=== PATIENT | female | born 1990 | race Caucasian/White ===

== ENCOUNTER → 2019-01-14 | Outpatient (CLI) | payer OTHER ==
--- NOTE | 2019-01-14 12:28 | RADIOLOGY IMAGING REPORT ---
FACILITY: [facility] - [place] PATIENT NAME: Susan Helm : 1990 MR: [id number] V: [id number] EXAM DATE: ORDERING PHYSICIAN: TYRONE JACKSON TECHNOLOGIST: Location: [facility] - [place] Patient: Susan Helm : 1990 Visit/Account:[id number] Date of Sevice: 01/14/2019 TRANSVAGINAL NON-OB HISTORY: Mirena IUD May 2018, bleeding, cramping, dyspareunia x2 weeks TECHNIQUE: Transvaginal ultrasound pelvis. COMPARISON: None. FINDINGS: Uterus: ; 7.8 cm length x 2.6 cm AP x 4.6 cm transverse. Myometrium: Unremarkable. Endometrium: There is an IUD which appears to been good position within the endometrial canal double thickness 4 mm. Cervix: There is a small amount of fluid in the endocervical canal. Ovaries: Right - 3.2 x 3.5 x 2.7 cm contains a 2.4 cm right ovarian cyst Left - 3.3 x 3.2 x 1.6 cm and contains a 2.3 cm cyst Blood flow is documented in each ovary by duplex Doppler ultrasound. Adnexa: Grossly unremarkable. Free pelvic fluid: Mild. IMPRESSION: There are bilateral ovarian cysts, largest on the right 2.4 cm and largest on the left 2.3 cm IUD appears to been good position within the endometrial canal. Small amount of fluid in the endocervical canal Report Dictated By: Isidra Flores MD at 01/14/2019 12:21 PM Report E-Signed By: Isidra Flores MD at 01/14/2019 12:25 PM WSN:[id number]
== END ==
LOC: US 10:14
PROVIDERS: ATTEND Nurse Practitioner Family
DX: N83.201 Unspecified ovarian cyst, right side (principal); N83.202 Unspecified ovarian cyst, left side
CPT/HCPCS: 76830

== ENCOUNTER 2019-01-17 15:44 | Emergency (ER) | payer OTHER ==
[2019-01-17] MEDS ORDERED: NS(*) 0.9% 1000 ML BAG 1,000 ML IV ONE (16:12)
[2019-01-17] MEDS ORDERED: ONDANSETRON 4 MG/2 ML VIAL IVP ONE (16:15)
[2019-01-17] MEDS ORDERED: MORPHINE 4 MG/ML SDV IVP ONE (16:15)
--- NOTE | 2019-01-17 16:21 | ER Report ---
History and Physical Time Seen By MD: 16:08 Hx. of Stated Complaint: patient sent over from [facility], they thought symptoms suspicious for appendicitis. Patient states at 1130 she started having cramping in right lower abdomen, pain went down leg, patient states feels warm to touch in abdomen. patient has been on period for long time, started to go away and then came back with the pain today. HPI/ROS CHIEF COMPLAINT: Abdominal pain HISTORY OF PRESENT ILLNESS: This is a 28-year-old female who presents to the emergency department for abdominal pain. Patient states that she's had ongoing abdominal pain, for the last couple of weeks, had a transvaginal ultrasound was noted to have bilateral ovarian cysts. She states however today 11:00 she had a sudden onset of right lower quadrant pain, followed up with [facility], so subsequently sent to the ER for further evaluation. Patient is very tearful. She states the pain is constant and will have waves of intensity that causes her right upper thigh to become painful. She denies fevers or chills. No chest pain or shortness of breath. No rashes. Denies dysuria. She does state that she is at an ongoing menstrual cycle without [facility] has been assisting her with, they also noted that her IUD was in place. REVIEW OF SYSTEMS: Constitutional: No fever, no chills. Eyes: No discharge. ENT: No sore throat. Cardiovascular: No chest pain, no palpitations. Respiratory: No cough, no shortness of breath. Gastrointestinal: As above. BLOOD BANK ASSISTANT: As above. Genitourinary: No hematuria. Musculoskeletal: No back pain. Skin: No rashes. Neurological: No headache. Allergies: Coded Allergies: No Known Drug Allergies (Unverified , 01/17/19) Past Medical/Surgical History Patient has a past medical surgical history of tonsillectomy, wears glasses and contacts, asthma, ovarian cysts. Reviewed Nurses Notes: Yes Constitutional Vital Sign - Last 24 Hours 01/17/19 15:48 Temp 97.8 Pulse 85 Resp 24 B/P (MAP) 135/75 Pulse Ox 96 O2 Delivery Room Air Physical Exam General Appearance: The patient is alert, has no immediate need for airway protection and no signs of toxicity. Eyes: Pupils equal and round no pallor or injection. ENT, Mouth: Mucous membranes are moist. Respiratory: There are no retractions, lungs are clear to auscultation. Cardiovascular: Regular rate and rhythm no murmurs, clicks or rubs. Gastrointestinal: Abdomen is soft, tenderness to the mid abdomen, right lower quadrant with rebound tenderness, mild discomfort to the left lower abdomen. no masses, bowel sounds normal. Neurological: Patient is alert and oriented 4. Moving all extremities. Following all commands. No focal neuro deficits. Skin: Warm and dry, no rashes. Musculoskeletal: Neck is supple non tender. Extremities are nontender, nonswollen and have full range of motion. DIFFERENTIAL DIAGNOSIS: After history and physical exam differential diagnosis was considered for abdominal pain in a female including but not limited to ovarian cyst, pelvic inflammatory disease, ovarian torsion, urinary tract infect ion, and appendicitis. Medical Decision Making Data Points Result Diagram: 01/17/19 1558 01/17/19 1558 Laboratory Hematology Test 01/17/19 00:00 01/17/19 15:58 Urine Color Yellow Urine Clarity Clear Urine pH 6.5 pH (4.8-9.5) Urine Specific [place] 1.05 Urine Protein Negative mg/dL (NEGATIVE) Urine Glucose (UA) Negative mg/dL (NEGATIVE) Urine Ketones Negative mg/dL (NEGATIVE) Urine Blood Negative (NEGATIVE) Urine Nitrite Negative (NEGATIVE) Urine Bilirubin Negative (NEGATIVE) Urine Urobilinogen 0.2 mg/dL (0.2-1.9) Urine Leukocyte Esterase Negative (NEGATIVE) Urine RBC None /HPF (0-2/HPF) Urine WBC None /HPF (0-5/HPF) Urine Squamous Epithelial Cells None /LPF (</=FEW) Urine Bacteria Negative /HPF (NONE-FEW) Urine Mucus None /HPF (NONE-FEW) Red Blood Count 5.09 M/uL (4.17-5.56) Mean Corpuscular Volume 89.2 fL (80.0-96.0) Mean Corpuscular Hemoglobin 30.6 pg (26.0-33.0) Mean Corpuscular Hemoglobin Concent 34.3 g/dL (32.0-36.0) Red Cell Distribution Width 13.4 % (11.5-14.5) Mean Platelet Volume 8.3 fL (7.2-11.1) Neutrophils (%) (Auto) 51.6 % (39.4-72.5) Lymphocytes (%) (Auto) 31.9 % (17.6-49.6) Monocytes (%) (Auto) 13.2 % (4.1-12.4) Eosinophils (%) (Auto) 2.7 % (0.4-6.7) Basophils (%) (Auto) 0.6 % (0.3-1.4) Nucleated RBC Relative Count (auto) 0.0 /100WBC Neutrophils # (Auto) 4.2 K/uL (2.0-7.4) Lymphocytes # (Auto) 2.6 K/uL (1.3-3.6) Monocytes # (Auto) 1.1 K/uL (0.3-1.0) Eosinophils # (Auto) 0.2 K/uL (0.0-0.5) Basophils # (Auto) 0.0 K/uL (0.0-0.1) Nucleated RBC Absolute Count (auto) 0.00 K/uL Sodium Level 140 mmol/L (137-145) Potassium Level 3.8 mmol/L (3.5-5.0) Chloride Level 105 mmol/L (98-107) Carbon Dioxide Level 25 mmol/L (22-31) Blood Urea Nitrogen 17 mg/dl (7-18) Creatinine 0.80 mg/dl (0.52-1.04) Glomerular Filtration Rate Calc > 60.0 Random Glucose 94 mg/dl (75-110) Calcium Level 9.3 mg/dl (8.4-10.2) Total Bilirubin 0.5 mg/dl (0.2-1.3) Aspartate Amino Transf (AST/SGOT) 23 U/L (0-35) Alanine Aminotransferase (ALT/SGPT) 24 U/L (0-56) Alkaline Phosphatase 50 U/L (0-126) Total Protein 7.8 g/dl (6.3-8.2) Albumin 4.5 g/dl (3.5-5.0) Human Chorionic Gonadotropin, Qual Negative (NEGATIVE) Chemistry Test 01/17/19 00:00 01/17/19 15:58 Urine Color Yellow Urine Clarity Clear Urine pH 6.5 pH (4.8-9.5) Urine Specific [place] 1.05 Urine Protein Negative mg/dL (NEGATIVE) Urine Glucose (UA) Negative mg/dL (NEGATIVE) Urine Ketones Negative mg/dL (NEGATIVE) Urine Blood Negative (NEGATIVE) Urine Nitrite Negative (NEGATIVE) Urine Bilirubin Negative (NEGATIVE) Urine Urobilinogen 0.2 mg/dL (0.2-1.9) Urine Leukocyte Esterase Negative (NEGATIVE) Urine RBC None /HPF (0-2/HPF) Urine WBC None /HPF (0-5/HPF) Urine Squamous Epithelial Cells None /LPF (</=FEW) Urine Bacteria Negative /HPF (NONE-FEW) Urine Mucus None /HPF (NONE-FEW) White Blood Count 8.2 k/uL (4.5-11.0) Red Blood Count 5.09 M/uL (4.17-5.56) Hemoglobin 15.6 g/dL (12.0-16.0) Hematocrit 45.4 % (34.0-47.0) Mean Corpuscular Volume 89.2 fL (80.0-96.0) Mean Corpuscular Hemoglobin 30.6 pg (26.0-33.0) Mean Corpuscular Hemoglobin Concent 34.3 g/dL (32.0-36.0) Red Cell Distribution Width 13.4 % (11.5-14.5) Platelet Count 370 K/uL (150-450) Mean Platelet Volume 8.3 fL (7.2-11.1) Neutrophils (%) (Auto) 51.6 % (39.4-72.5) Lymphocytes (%) (Auto) 31.9 % (17.6-49.6) Monocytes (%) (Auto) 13.2 % (4.1-12.4) Eosinophils (%) (Auto) 2.7 % (0.4-6.7) Basophils (%) (Auto) 0.6 % (0.3-1.4) Nucleated RBC Relative Count (auto) 0.0 /100WBC Neutrophils # (Auto) 4.2 K/uL (2.0-7.4) Lymphocytes # (Auto) 2.6 K/uL (1.3-3.6) Monocytes # (Auto) 1.1 K/uL (0.3-1.0) Eosinophils # (Auto) 0.2 K/uL (0.0-0.5) Basophils # (Auto) 0.0 K/uL (0.0-0.1) Nucleated RBC Absolute Count (auto) 0.00 K/uL Glomerular Filtration Rate Calc > 60.0 Calcium Level 9.3 mg/dl (8.4-10.2) Total Bilirubin 0.5 mg/dl (0.2-1.3) Aspartate Amino Transf (AST/SGOT) 23 U/L (0-35) Alanine Aminotransferase (ALT/SGPT) 24 U/L (0-56) Alkaline Phosphatase 50 U/L (0-126) Total Protein 7.8 g/dl (6.3-8.2) Albumin 4.5 g/dl (3.5-5.0) Human Chorionic Gonadotropin, Qual Negative (NEGATIVE) Urinalysis Test 01/17/19 00:00 Urine Color Yellow Urine Clarity Clear Urine pH 6.5 pH (4.8-9.5) Urine Specific [place] 1.05 Urine Protein Negative mg/dL (NEGATIVE) Urine Glucose (UA) Negative mg/dL (NEGATIVE) Urine Ketones Negative mg/dL (NEGATIVE) Urine Blood Negative (NEGATIVE) Urine Nitrite Negative (NEGATIVE) Urine Bilirubin Negative (NEGATIVE) Urine Urobilinogen 0.2 mg/dL (0.2-1.9) Urine Leukocyte Esterase Negative (NEGATIVE) Urine RBC None /HPF (0-2/HPF) Urine WBC None /HPF (0-5/HPF) Urine Squamous Epithelial Cells None /LPF (</=FEW) Urine Bacteria Negative /HPF (NONE-FEW) Urine Mucus None /HPF (NONE-FEW) EKG/Imaging Imaging PATIENT NAME: Susan Helm : 1990 MR: [id number] V: [id number] EXAM DATE: ORDERING PHYSICIAN: SHANA BRAND TECHNOLOGIST: Location: [facility] Patient: Susan Helm : 1990 Visit/Account:[id number] Date of Sevice: 01/17/2019 CT abdomen and pelvis with IV contrast Indication: Right lower abdominal pain. Comparison: None available. . Technique: Axial CT images were obtained through the abdomen and pelvis during injection of nonionic iodinated intravenous contrast. Reformatted coronal and sagittal images were also obtained. One of the following dose optimization techniques was utilized in the performance of this exam: Automated exposure control; adjustment of the mA and/or kV according to the patient's size; or use of an iterative reconstruction technique. Specific details can be referenced in the facility's radiology CT exam operational policy. Contrast: 75 ml of Isovue-370 IV contrast. Findings: Lower lung muñoz: Limited views lower lung field are unremarkable. Liver: No focal parenchymal abnormality of the liver. Mild periportal hyp odensity diffusely. No periportal enhancement. The vasculature appears patent. Biliary: Gallbladder appears unremarkable as well as the intra and extra hepatic biliary system. Pancreas: Normal appearance. Spleen: Normal appearance. Adrenal glands: Unremarkable. Kidneys / retroperitoneum: No evidence of nephrolithiasis or hydronephrosis. No focal normality. Bowel / peritoneum / mesenteries: The appendix is normal. The tip of the appendix does show a tiny calcification. No inflammation or other focal abnormality of the appendix. The colon shows no focal normality. The small bowel shows no focal normality or obstruction. The stomach is unremarkable. No free air, fluid collections or areas of inflammation. Lymph node assessment: No pathologic adenopathy identified. Pelvic structures: The right ovary does show a collapsing/ruptured ovarian cyst measuring 2 cm. There is small amount of free fluid seen in the right adnexa and pelvis. The remaining pelvic structures visualized within normal limits. IUD appears to be in good position. Vessels: No significant atherosclerotic calcifications seen throughout a nonaneurysmal abdominal aorta and branches. Musculoskeletal / Body wall: No acute or aggressive osseous abnormality. IMPRESSION: 1. The appendix is normal. 2. Right ovary shows a collapsing/ruptured 2 cm cyst with small amount of free fluid. 3. The liver does show mild prominent periportal hypodensity. This is likely due to the phase of contrast and mild periportal fat. There is no abnormal enhancement to suggest cholangitis. Report Dictated By: Humberto Hernandez at 01/17/2019 5:33 PM Report E-Signed By: Humberto Hernandez at 01/17/2019 5:42 PM WSN:[id number] ED Course/Re-evaluation Clinical Indication for ER IV: Hydration, IV Access ED Course The patient was admitted to room. A history and physical obtained. Differential diagnoses were considered. An IV was started. A CBC, CMP were obtained. A UA was collected. Laboratory studies and UA unremarkable. A 1 L normal saline bolus was given. 4 mg IV Zofran, 4 mg IV morphine were given. CT of the abdomen and pelvis negative for acute appendicitis, showing a right ovarian cyst collapsing. Reviewed this with the patient, did tell her this is likely the source of her discomfort. Patient expressed understanding. I did tell the patient that she should follow-up with BLOOD BANK ASSISTANT for future care and the continuous vaginal bleeding. Patient expressed understanding was agreeable with this plan care and discharged home. Decision to Disposition Date: Jan 17, 2019 Decision to Disposition Time: 18:07 Depart Departure Latest Vital Signs Vital Signs Date Time Temp Pulse Resp B/P (MAP) Pulse Ox O2 Delivery O2 Flow Rate FiO2 01/17/19 15:48 97.8 85 24 135/75 96 Room Air Impression: Primary Impression: Right ovarian cyst Condition: Improved Disposition: HOME OR SELF-CARE Referrals: ELI LOCKHART DO Patient Instructions: Ovarian Cyst (ED) Additional Instructions: Your appendix is normal, the pain is likely from the ovarian cyst on the right side. Here blood work is unremarkable. You can take 600-800 mg of ibuprofen every 8 hours as needed. Drink plenty of water. Get plenty of rest. Please follow up and establish with BLOOD BANK ASSISTANT for the continued menstrual cycles. Return to the ER for any other concerns or worsening symptoms. SHANA BRAND METERMAN-BC Jan 17, 2019 16:21
[2019-01-17 16:23] LABS: PLATELET COUNT, AUTOMATED 370 K/uL (150-450)
[2019-01-17] MEDS ORDERED: IOPAMIDOL 76% 150 ML INFUS BTL 150 ML ONE (16:33)
--- NOTE | 2019-01-17 17:46 | RADIOLOGY IMAGING REPORT ---
FACILITY: [facility] PATIENT NAME: Susan Helm : 1990 MR: [id number] V: [id number] EXAM DATE: ORDERING PHYSICIAN: SHANA BRAND TECHNOLOGIST: Location: [facility] [place] Patient: Susan Helm : 1990 Visit/Account:[id number] Date of Sevice: 01/17/2019 CT abdomen and pelvis with IV contrast Indication: Right lower abdominal pain. Comparison: None available. . Technique: Axial CT images were obtained through the abdomen and pelvis during injection of nonioni c iodinated intravenous contrast. Reformatted coronal and sagittal images were also obtained. One of the following dose optimization techniques was utilized in the performance of this exam: Autom ated exposure control; adjustment of the mA and/or kV according to the patient's size; or use of an i terative reconstruction technique. Specific details can be referenced in the facility's radiology C T exam operational policy. Contrast: 75 ml of Isovue-370 IV contrast. Findings: Lower lung muñoz: Limited views lower lung field are unremarkable. Liver: No focal parenchymal abnormality of the liver. Mild periportal hypodensity diffusely. No perip ortal enhancement. The vasculature appears patent. Biliary: Gallbladder appears unremarkable as well as the intra and extra hepatic biliary system. Pancreas: Normal appearance. Spleen: Normal appearance. Adrenal glands: Unremarkable. Kidneys / retroperitoneum: No evidence of nephrolithiasis or hydronephrosis. No focal normality. Bowel / peritoneum / mesenteries: The appendix is normal. The tip of the appendix does show a tiny ca lcification. No inflammation or other focal abnormality of the appendix. The colon shows no focal nor mality. The small bowel shows no focal normality or obstruction. The stomach is unremarkable. No free air, fluid collections or areas of inflammation. Lymph node assessment: No pathologic adenopathy identified. Pelvic structures: The right ovary does show a collapsing/ruptured ovarian cyst measuring 2 cm. Th ere is small amount of free fluid seen in the right adnexa and pelvis. The remaining pelvic structure s visualized within normal limits. IUD appears to be in good position. Vessels: No significant atherosclerotic calcifications seen throughout a nonaneurysmal abdominal aort a and branches. Musculoskeletal / Body wall: No acute or aggressive osseous abnormality. IMPRESSION: 1. The appendix is normal. 2. Right ovary shows a collapsing/ruptured 2 cm cyst with small amount of free fluid. 3. The liver does show mild prominent periportal hypodensity. This is likely due to the phase of cont rast and mild periportal fat. There is no abnormal enhancement to suggest cholangitis. Report Dictated By: Humberto Hernandez at 01/17/2019 5:33 PM Report E-Signed By: Humberto Hernandez at 01/17/2019 5:42 PM WSN:[id number]
[2019-01-17 18:12] VITALS: BP 110/83
== END 2019-01-17 18:20 | disposition home or self-care (01) ==
LOC: ER 16:02
DX: N83.201 Unspecified ovarian cyst, right side (principal)
CPT/HCPCS: 74177; 81001; 84703; 85025; 96360; 99284; J7030; Q9967; 82040; 82247; 82310; 82374; 82435; 82565; 82947; 84075; 84132; 84155; 84295; 84450; 84460; 84520